=== PATIENT | female | born 1955 | race African-American/Black ===

== ENCOUNTER → 2016-04-10 | Outpatient (CLI) | payer MEDICARE, OTHER ==
[~2016-04-10] MED LIST: AMLO-511 PO; ASPI81 PO; BENZ1TAB10 PO; HALO100A IM; LISI-661 PO; LORA1TAB3 PO; METO50 PO; OMEP20 PO; OXYB5 PO; PERCT10 PO
== END | disposition home or self-care (01) ==
LOC: RADPV 11:26
PROVIDERS: ATTEND Podiatrist Foot & Ankle Surgery
DX: M20.21 Hallux rigidus, right foot (principal)

== ENCOUNTER 2016-04-28 06:55 | Emergency (ER) | payer MEDICARE, OTHER ==
[~2016-04-28] VITALS: Ht 170.2 cm; Wt 106.3 kg
[2016-04-28 09:52] VITALS: BP 132/80
== END 2016-04-28 10:45 | disposition home or self-care (01) ==
LOC: EMS 06:57
DX: S80.02XA Contusion of left knee, initial encounter (principal); M17.12 Unilateral primary osteoarthritis, left knee; K21.9 Gastro-esophageal reflux disease without esophagitis; E78.00 Pure hypercholesterolemia, unspecified; I10 Essential (primary) hypertension; Z86.73 Personal history of transient ischemic attack (TIA), and cerebral infarction without residual deficits; Z79.82 Long term (current) use of aspirin; Z88.6 Allergy status to analgesic agent; Z88.5 Allergy status to narcotic agent; Z88.0 Allergy status to penicillin; Z88.8 Allergy status to other drugs, medicaments and biological substances; W01.0XXA Fall on same level from slipping, tripping and stumbling without subsequent striking against object, initial encounter; Y93.89 Activity, other specified; Y92.89 Other specified places as the place of occurrence of the external cause; Y99.8 Other external cause status
CPT/HCPCS: 29530; 99284

== ENCOUNTER 2016-07-14 11:51 | Emergency (ER) | payer MEDICARE, OTHER ==
[~2016-07-14] VITALS: Ht 167.6 cm; Wt 109.0 kg
[2016-07-14] MEDS ORDERED: KETOROLAC TROMETHAMINE 30 MG/ML VIAL IM ONE (12:15)
[2016-07-14 13:46] VITALS: BP 137/72
== END 2016-07-14 14:30 | disposition home or self-care (01) ==
LOC: EMS 11:54
DX: M25.552 Pain in left hip (principal); I10 Essential (primary) hypertension; E78.00 Pure hypercholesterolemia, unspecified; E03.9 Hypothyroidism, unspecified; Z88.5 Allergy status to narcotic agent; Z88.0 Allergy status to penicillin; Z88.6 Allergy status to analgesic agent
CPT/HCPCS: 73503; 96372; 99284; J1885

== ENCOUNTER 2016-07-16 06:54 | Emergency (ER) | payer MEDICARE, OTHER ==
[~2016-07-16] VITALS: Ht 167.6 cm; Wt 107.1 kg
[2016-07-16] MEDS ORDERED: PredniSONE 20 MG TABLET PO ONE (07:45)
[2016-07-16] MEDS ORDERED: KETOROLAC TROMETHAMINE 60 MG/2 ML VIAL IM ONE (07:45)
[2016-07-16] MEDS ORDERED: DIAZEPAM 5 MG TABLET PO ONE (07:45)
[2016-07-16 09:00] VITALS: BP 109/60
== END 2016-07-16 09:47 | disposition home or self-care (01) ==
LOC: EMS 06:57
DX: M54.42 Lumbago with sciatica, left side (principal); M79.652 Pain in left thigh; M25.552 Pain in left hip; G89.29 Other chronic pain; K21.9 Gastro-esophageal reflux disease without esophagitis; I10 Essential (primary) hypertension; E78.00 Pure hypercholesterolemia, unspecified; E03.9 Hypothyroidism, unspecified; Z86.73 Personal history of transient ischemic attack (TIA), and cerebral infarction without residual deficits; Z79.82 Long term (current) use of aspirin; Z88.0 Allergy status to penicillin; Z88.6 Allergy status to analgesic agent; Z88.8 Allergy status to other drugs, medicaments and biological substances; Z88.5 Allergy status to narcotic agent
CPT/HCPCS: 96372; 99283; J1885; J7512

== ENCOUNTER 2016-09-12 11:44 | Emergency (ER) | payer MEDICARE, OTHER ==
[~2016-09-12] VITALS: Ht 170.2 cm; Wt 102.3 kg
[2016-09-12] MEDS ORDERED: ONDANSETRON HCL 4 MG/2 ML VIAL IVP ONE ×2 (12:45→15:00)
[2016-09-12 14:02] LABS: GLUCOSE,POINT OF CARE 76 MG/DL (70-110)
[2016-09-12 14:34] LABS: BASOPHILS % (AUTO) 0.5 % (0.0-2.0); EOSINOPHILS % (AUTO) 0.4 % (1.0-6.0); HEMATOCRIT 44.7 % (36-46); LYMPHOCYTES # (AUTO) 1.2 K/uL (1.0-4.8); LYMPHOCYTES % (AUTO) 25.2 % (22.0-44.0); MEAN CORPUSCULAR HEMOGLOBIN 28.1 pg (26.0-34.0); MEAN CORPUSCULAR HGB CONC 33.5 G/dL (31.0-37.0); MEAN CORPUSCULAR VOLUME 84 fL (80-100); MONOCYTES # (AUTO) 0.4 K/uL (0.1-1.0); MONOCYTES % (AUTO) 8.6 % (2.0-9.0); NEUTROPHILS % (AUTO) 65.3 % (40.0-70.0); PLATELET COUNT (AUTO) 256 K/uL (150-450); RED BLOOD CELL COUNT(AUTO) 5.32 MIL/uL (4.00-5.20); RED CELL DISTRIBUTION WIDTH 13.6 % (11.5-14.5); WHITE BLOOD COUNT (AUTO) 4.7 K/uL (4.5-11.0)
[2016-09-12 14:37] LABS: ANION GAP 8 mmol/L (8-16); CALCIUM, TOTAL 10.3 mg/dL (8.8-10.5); CARBON DIOXIDE 30 mmol/L (22-29); CHLORIDE 100 mmol/L (98-107); GLOMERULAR FILTR. RATE CALC > 60 mL/min (>60); POTASSIUM 3.8 mmol/L (3.5-5.1); SODIUM SERUM 138 mmol/L (136-145); UREA NITROGEN, BLOOD 7 mg/dL (7-18)
[2016-09-12 14:43] LABS: ALANINE AMINOTRANSFERASE 16 U/L (12-78); ASPARTATE AMINOTRANSFERASE 12 U/L (15-37); BILIRUBIN,TOTAL 0.4 mg/dL (0.1-1.0); TOTAL PROTEIN, SERUM 8.6 g/dL (6.4-8.2)
[2016-09-12] MEDS ORDERED: SODIUM CHLORIDE 0.9% 1,000 ML IV ONE (15:00)
[2016-09-12 16:26] VITALS: BP 127/80
== END 2016-09-12 16:27 | disposition home or self-care (01) ==
LOC: EMS 11:46
DX: R42 Dizziness and giddiness (principal); I10 Essential (primary) hypertension; E03.9 Hypothyroidism, unspecified; E78.00 Pure hypercholesterolemia, unspecified; K21.9 Gastro-esophageal reflux disease without esophagitis; Z88.0 Allergy status to penicillin; Z88.6 Allergy status to analgesic agent; Z88.5 Allergy status to narcotic agent; Z79.82 Long term (current) use of aspirin
CPT/HCPCS: 36415; 80053; 82948; 82962; 84484; 85025; 93005; 96361; 96374; 96376; 99285; J2405; J7030

== ENCOUNTER → 2016-11-28 | Outpatient (CLI) | payer MEDICARE, OTHER | END | disposition home or self-care (01) | LOC: RADPV 11:07 | PROVIDERS: ATTEND Internal Medicine Geriatric Medicine | DX: M25.552 Pain in left hip (principal); M17.12 Unilateral primary osteoarthritis, left knee | CPT/HCPCS: 73503 ==

== ENCOUNTER → 2018-02-27 | Outpatient (CLI) | payer MEDICARE, OTHER | END | disposition home or self-care (01) | LOC: RADPV 12:04 | PROVIDERS: ATTEND Internal Medicine Geriatric Medicine | DX: M17.12 Unilateral primary osteoarthritis, left knee (principal); M19.072 Primary osteoarthritis, left ankle and foot; M25.462 Effusion, left knee; M25.475 Effusion, left foot ==

== ENCOUNTER → 2018-03-11 | Outpatient (CLI) | payer MEDICARE, OTHER ==
[2018-03-11 22:52] LABS: CHOL/HDL RATIO 3.7 (3.9-5.7)
[2018-03-11 22:57] LABS: HEMOGLOBIN A1C 5.9 % (4.5-6.2)
== END | disposition home or self-care (01) ==
LOC: LABMN 11:00
PROVIDERS: ATTEND Psychiatry & Neurology Psychiatry
DX: F25.0 Schizoaffective disorder, bipolar type (principal); I10 Essential (primary) hypertension; K21.9 Gastro-esophageal reflux disease without esophagitis; J45.909 Unspecified asthma, uncomplicated; E11.9 Type 2 diabetes mellitus without complications; Z79.82 Long term (current) use of aspirin
CPT/HCPCS: 82947; 83036

== ENCOUNTER → 2019-01-04 | Outpatient (CLI) | payer MEDICARE, OTHER ==
[~2019-01-04] MED LIST changes: -AMLO-511 PO; +AMLO5TAB9 PO; +LORA-1000 PO; -LORA1TAB3 PO; +OXYC-601 PO; -PERCT10 PO
== END | disposition home or self-care (01) ==
LOC: RADMN 09:35
PROVIDERS: ATTEND Specialist
DX: I67.82 Cerebral ischemia (principal); J34.89 Other specified disorders of nose and nasal sinuses
CPT/HCPCS: 70551

== ENCOUNTER → 2019-12-07 | Outpatient (CLI) | payer MEDICARE, OTHER ==
[~2019-12-07] MED LIST changes: +AMLO-257 PO; -AMLO5TAB9 PO; +ASPI-728 PO; -ASPI81 PO
== END | disposition home or self-care (01) ==
LOC: RADPV 11:11
PROVIDERS: ATTEND Internal Medicine Geriatric Medicine
DX: M16.0 Bilateral primary osteoarthritis of hip (principal)
CPT/HCPCS: 73521

== ENCOUNTER → 2020-05-30 | Outpatient (CLI) | payer MEDICARE, OTHER ==
[~2020-05-30] MED LIST changes: +ASPI-1450 PO; -ASPI-728 PO; -LISI-661 PO; +LISI-893 PO
[2020-05-30 10:54] LABS: BASOPHILS % (AUTO) 0.4 % (0.0-2.0); EOSINOPHILS % (AUTO) 8.1 % (1.0-6.0); HEMATOCRIT 38.6 % (36-46); HEMOGLOBIN 12.4 g/dL (12.0-16.0); LYMPHOCYTES # (AUTO) 2.3 K/uL (1.0-4.8); LYMPHOCYTES % (AUTO) 39.5 % (22.0-44.0); MEAN CORPUSCULAR HEMOGLOBIN 27.1 pg (26.0-34.0); MEAN CORPUSCULAR HGB CONC 32.1 G/dL (31.0-37.0); MEAN CORPUSCULAR VOLUME 85 fL (80-100); MONOCYTES # (AUTO) 0.5 K/uL (0.1-1.0); MONOCYTES % (AUTO) 8.8 % (2.0-9.0); NEUTROPHILS # (AUTO) 2.5 K/uL (1.8-7.7); NEUTROPHILS % (AUTO) 43.2 % (40.0-70.0); PLATELET COUNT (AUTO) 299 K/uL (150-450); RED BLOOD CELL COUNT(AUTO) 4.57 MIL/uL (4.00-5.20); RED CELL DISTRIBUTION WIDTH 14.3 % (11.5-14.5)
[2020-05-30 11:18] LABS: HEMOGLOBIN A1C 6.2 % (3.8-5.6)
[2020-05-30 11:26] LABS: ANION GAP 10 mmol/L (8-16); CARBON DIOXIDE 26 mmol/L (22-29); CHLORIDE 107 mmol/L (98-107); CREATININE 0.94 mg/dL (0.60-1.30); GLUCOSE,RANDOM 100 mg/dL (70-110); SODIUM SERUM 143 mmol/L (136-145); UREA NITROGEN, BLOOD 11 mg/dL (7-18)
[2020-05-30 11:27] LABS: ALANINE AMINOTRANSFERASE 16 U/L (12-78); ALBUMIN 3.4 g/dL (3.4-5.0); ALKALINE PHOSPHATASE 101 U/L (46-116); ASPARTATE AMINOTRANSFERASE 16 U/L (15-37); BILIRUBIN,TOTAL 0.3 mg/dL (0.1-1.0); CALCIUM, TOTAL 9.6 mg/dL (8.8-10.5); CHOLESTEROL 134 mg/dL (131-200); FREE T4 (FREE THYROXINE) 0.75 ng/dL (0.76-1.46); GLOMERULAR FILTR. RATE CALC > 60 mL/min (>60); HDL CHOLESTEROL 45 mg/dL (40-60); LDL CHOL (CALC.) 72 mg/dL (0-130); THYROID STIMULATING HORMONE 2.43 uIU/mL (0.36-3.74); TOTAL PROTEIN, SERUM 7.8 g/dL (6.4-8.2); TRIGLYCERIDES 86 mg/dL (15-150)
== END | disposition home or self-care (01) ==
LOC: LABPV 09:55
PROVIDERS: ATTEND Internal Medicine Geriatric Medicine
DX: I10 Essential (primary) hypertension (principal); E03.9 Hypothyroidism, unspecified; E11.9 Type 2 diabetes mellitus without complications
CPT/HCPCS: 83036; 84439; 84443

== ENCOUNTER → 2022-05-29 | Outpatient (CLI) | payer MEDICARE, OTHER ==
[~2022-05-29] VITALS: Ht 170.2 cm; Wt 122.2 kg
[~2022-05-29] MED LIST changes: +ATOR10TA PO; -BENZ1TAB10 PO; +BENZ1TAB96 PO; +BUPR1PAT20 TP; +FURO20 PO; +GABA-1181 PO; +HYDR15SO10 PO; +METO-558 PO; +NAPR-1025 PO; +OXYB-34 PO; -OXYB5 PO; +OXYB5TAB20 PO; +OXYC-490 PO; -OXYC-601 PO; +PALI156D IM; +QUET100T PO; +SENN-187 PO; +TIZA-211 PO; +TOPI25 PO
[2022-05-29 11:15] VITALS: BP 124/84
== END | disposition home or self-care (01) ==
LOC: SRCNTR 10:59
PROVIDERS: ATTEND Internal Medicine
DX: G47.33 Obstructive sleep apnea (adult) (pediatric) (principal); I10 Essential (primary) hypertension; J45.909 Unspecified asthma, uncomplicated
CPT/HCPCS: G0463

== ENCOUNTER → 2022-07-08 | Outpatient (CLI) | payer MEDICARE, OTHER ==
[~2022-07-08] MED LIST changes: -AMLO-257 PO; -BENZ1TAB96 PO; -HALO100A IM; -LISI-893 PO; -LORA-1000 PO; -METO50 PO; -OXYB5TAB20 PO; -OXYC-490 PO
== END | disposition home or self-care (01) ==
LOC: RADMN 12:54
PROVIDERS: ATTEND Internal Medicine Geriatric Medicine
DX: M19.032 Primary osteoarthritis, left wrist (principal); M25.571 Pain in right ankle and joints of right foot; M25.532 Pain in left wrist; M19.071 Primary osteoarthritis, right ankle and foot; M25.774 Osteophyte, right foot
CPT/HCPCS: 73110-TC; 73630-TC

== ENCOUNTER → 2022-11-07 | Outpatient (CLI) | payer MEDICARE, OTHER, SELFPAY ==
[~2022-11-07] VITALS: Ht 170.2 cm; Wt 119.0 kg
[~2022-11-07] MED LIST changes: +BIOT5000 PO; +CALC-1124 PO; +MELA5TAB40 PO; -SENN-187 PO; +SENN-376 PO
[2022-11-07 10:03] VITALS: BP 121/79; PULSE 88; RESP 16; TEMP 98.1; O2SAT 98
== END | disposition home or self-care (01) ==
LOC: SRCNTR 09:37
PROVIDERS: ATTEND Internal Medicine
DX: Z95.0 Presence of cardiac pacemaker (principal)
CPT/HCPCS: G0463; Z7500

== ENCOUNTER → 2023-03-20 | Outpatient (CLI) | payer MEDICARE, OTHER, SELFPAY ==
[~2023-03-20] VITALS: Ht 170.2 cm; Wt 112.0 kg
[2023-03-20 09:13] VITALS: BP 112/71; PULSE 76; RESP 17; TEMP 97.7; O2SAT 96
== END | disposition home or self-care (01) ==
LOC: SRCNTR 09:00
PROVIDERS: ATTEND Internal Medicine
DX: J45.909 Unspecified asthma, uncomplicated (principal); E66.9 Obesity, unspecified; I10 Essential (primary) hypertension
CPT/HCPCS: G0463; Z7500